=== PATIENT | male | born 1995 | race Caucasian/White ===

== ENCOUNTER 2018-04-30 20:12 | Emergency (ER) | payer BC ==
[~2018-04-30] VITALS: Ht 170.2 cm; Wt 104.5 kg
[2018-04-30 20:16] VITALS: TEMP 98.6
[2018-04-30 21:49] VITALS: BP 123/84; PULSE 84
== END 2018-04-30 22:10 | disposition home or self-care (01) ==
LOC: COL.ER 20:12
DX: S02.2XXA Fracture of nasal bones, initial encounter for closed fracture (principal); S02.401A Maxillary fracture, unspecified side, initial encounter for closed fracture; S01.111A Laceration without foreign body of right eyelid and periocular area, initial encounter; W00.0XXA Fall on same level due to ice and snow, initial encounter; Y92.410 Unspecified street and highway as the place of occurrence of the external cause

== ENCOUNTER 2018-04-30 23:40 | Emergency (ER) | payer BC ==
[~2018-04-30] VITALS: Ht 170.2 cm; Wt 102.3 kg
[2018-04-30 23:48] VITALS: TEMP 98.3
[2018-05-01 00:49] VITALS: BP 99/68; PULSE 86
== END 2018-05-01 01:19 | disposition short-term general hospital (02) ==
LOC: COL.ER 23:40
DX: S02.2XXA Fracture of nasal bones, initial encounter for closed fracture (principal); S06.5X0A Traumatic subdural hemorrhage without loss of consciousness, initial encounter; W00.0XXA Fall on same level due to ice and snow, initial encounter; Y92.214 College as the place of occurrence of the external cause